=== PATIENT | female | born 1960 | race African-American/Black ===

== ENCOUNTER 2025-03-07 09:17 | Outpatient (CLI) | payer BC | END 2025-03-07 09:18 | disposition home or self-care (01) | LOC: CSHMAMMO 09:17 | PROVIDERS: ATTEND Radiology Radiation Oncology | DX: C50.412 Malignant neoplasm of upper-outer quadrant of left female breast (principal); R92.8 Other abnormal and inconclusive findings on diagnostic imaging of breast | CPT/HCPCS: G0279 ==